=== PATIENT | female | born 1990 | race Caucasian/White ===

== ENCOUNTER 2019-03-02 17:02 | Inpatient (IN) | payer OTHER ==
[2019-03-02 17:46] LABS: #Eosinphils 0.1 thou/uL (0.0-0.7); #Lymphocytes 1.8 thou/uL (1.20-3.40); #Monocytes 0.8 thou/uL (0.11-0.59); #Neutrophils 6.1 thou/uL (1.40-6.50); %Basophils 0.3 % (0.0-1.0); %Eosinophils 0.7 % (0.0-10.0); %Lymphocytes 20.5 % (21.0-51.0); %Neutrophils 69.5 % (42.0-75.0); Hemoglobin 13.7 g/dL (12.0-16.0); Mean Corpuscular HGB CONC 33.7 g/dL (32.0-36.0); Mean Corpuscular Hemoglobin 30.7 pg (27.0-31.0); Mean Corpuscular Volume 91.1 fL (78.0-98.0); Mean Platelet Volume 8.2 fL (7.4-10.4); Platelet Count 213 thou/uL (130-400); RBC Distribution Width 11.1 % (11.5-14.5); Red Blood Cell (RBC) Count 4.48 mill/uL (4.20-5.40); White Blood Cell (WBC) Count 8.8 thou/uL (4.8-10.8)
[2019-03-02] MEDS ORDERED: cefTRIAXone\\ROCEPHIN 2 GM VIAL ONE (17:52)
[2019-03-02 18:04] LABS: ALT (SGPT) 10 U/L (8-55); AST (SGOT) 15 U/L (5-34); Albumin 4.3 g/dL (3.5-5.0); Alkaline Phosphatase 53 U/L (40-110); Anion Gap 13 mmol/L (10-20); BUN (Urea Nitrogen) 15 mg/dL (7.0-18.7); Bilirubin, Total 0.8 mg/dL (0.2-1.2); Calc. Creatinine Clearance 0 mL/min (70-130); Calcium 9.7 mg/dL (7.8-10.44); Carbon Dioxide 26 mmol/L (22-29); Chloride 102 mmol/L (98-107); Estimated GFR-MDRD 75; Globulin 3.6 g/dL (2.4-3.5); Glucose 80 mg/dL (70-105); Potassium 4.2 mmol/L (3.5-5.1); Protein, Total 7.9 g/dL (6.0-8.3); Sodium 137 mmol/L (136-145)
[2019-03-02] MEDS ORDERED: Ondansetron PF 4 MG/2 ML Vial ONE (18:33)
[2019-03-02] MEDS ORDERED: Ketorolac Tromethamine 30 MG/ML VIAL ONE (19:16)
[2019-03-02] MEDS ORDERED: Acetaminophen 325 MG TAB PO PRN (19:51)
[2019-03-02] MEDS ORDERED: Calcium Carbonate 500 MG ChewTAB PO PRN (19:51)
[2019-03-02] MEDS ORDERED: Ondansetron ODT 4 MG TAB PO PRN (19:51)
[2019-03-02] MEDS ORDERED: Ondansetron PF 4 MG/2 ML Vial IVP PRN (19:51)
[2019-03-02] MEDS ORDERED: HYDROcodone/Acetaminophen 5/325 mg Tablet PO PRN (19:53)
[2019-03-02] MEDS ORDERED: Doxepin HCl 10 MG CAP PO PRN (19:55)
[2019-03-02] MEDS ORDERED: Famotidine 20 MG TAB PO PRN (19:57)
[2019-03-02] MEDS ORDERED: Vancomycin HCl 1 GM in Premix Bag 1 BAG IVPB SCH (20:00)
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
[2019-03-02 20:32] VITALS: BMI 34.3
[2019-03-03] MEDS: Vancomycin 1.5 GRAM/300 ML BAG 1.5 GM in Premix Bag 1 BAG IVPB SCH ×2 (00:31→13:43)
[2019-03-03] MEDS: Ketorolac Tromethamine 30 MG/ML VIAL IVP PRN ×2 (01:44→08:57)
[2019-03-03] MEDS ORDERED: Saccharomyces boulardii 250 MG CAP PO SCH (09:00)
[2019-03-03] MEDS ORDERED: diphenhydrAMINE 25 MG CAP PO PRN (12:28)
[2019-03-03] MEDS ORDERED: Ibuprofen 200 MG TAB PO PRN (12:28)
[2019-03-03] MEDS ORDERED: ALPRAZolam 0.25 MG TAB PO PRN (12:28)
[2019-03-03] MEDS ORDERED: Melatonin 3 MG TAB PO PRN (12:28)
--- NOTE | 2019-03-03 14:50 | PDOC.HOSPP ---
- Subjective Encounter Date: 03/03/19 Encounter Time: 11:00 Subjective: Patient seen and examined for facial cellulitis. Swelling slowly improving. No fever/chills. No new complaints. No overnight events - Objective Vital Signs & Weight: Vital Signs (12 hours) Temp Pulse Resp BP Pulse Ox 03/03/19 11:38 97.9 F 66 20 103/67 97 03/03/19 08:52 99 03/03/19 07:49 97.7 F 60 20 99/60 99 03/03/19 04:43 98.1 F 63 15 102/67 99 Weight Admit Weight 212 lb 11.2 oz Weight 212 lb 11.2 oz Result Diagrams: 03/02/19 17:32 03/02/19 17:32 Hospitalist ROS - Review of Systems Respiratory: denies: cough, dry, shortness of breath, hemoptysis, SOB with excertion, pleuritic pain, sputum, wheezing, other Cardiovascular: denies: chest pain, palpitations, orthopnea, paroxysmal noc. dyspnea, edema, light headedness, other - Medication Medications: Active Medications Generic Name Dose Route Start Last Admin Trade Name Freq PRN Reason Stop Dose Admin Vancomycin HCl 1.5 gm/ Device 300 mls @ 200 mls/hr 03/03/19 01:00 03/03/19 13 :43 IVPB 300 mls 0100,1300 HAWK Administration Saccharomyces Boulardii 250 mg 03/03/19 09:00 03/03/19 08:54 Florastor PO 250 mg DAILY HAWK Administration - Exam General Appearance: NAD Skin - other findings: improving/erythema improving Psychiatric: normal affect, A&O x 3 Hosp A/P - Plan DVT proph w/SCDs 1. Facial cellulitis with abscess, status post I&D 2. Chronic kidney disease, stage 2. 3. Obesity BMI 34.3 PLAN: Cont Vancomycin/Ceftriaxone Monitor Vancomycin level Cont other meds as above.
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
[2019-03-03 18:30] VITALS: BP 123/76; TEMP 97.6
[2019-03-03] MEDS ORDERED: cefTRIAXone\\ROCEPHIN 2 GM in Sodium Chloride 0.9% 100 ML IVPB SCH (20:00)
--- NOTE | 2019-03-04 08:16 | DIS ---
DATE OF ADMISSION: 03/02/2019 DATE OF DISCHARGE: 03/03/2019 DISCHARGE DISPOSITION: Home. FOLLOWUP: 1. Follow up with Dr. Debbie Keane in 3 days. 2. Follow up with Infectious Disease, Dr. Real in 1 week. The patient was seen on the day of discharge. Denies any new complaints. Please refer to my progress note for details. BRIEF HOSPITAL COURSE: The patient is a 28-year-old female, who was admitted to the hospital with a facial swelling of 1 week duration. She had incision and drainage of the facial abscess the day before admission. She failed outpatient therapy. She was started on IV vancomycin and Zosyn. She was evaluated by Infectious Disease, Dr. Real, who recommended Zyvox 600 mg b.i.d. for 10 days. Cultures from the incision and drainage was positive for Staphylococcus. Sensitivities are pending at this time. The patient has been cleared by Infectious Disease for discharge. SIGNIFICANT LABORATORY DATA: WBC 8.8 and hemoglobin 13.7. Sodium 137, potassium 4.2, BUN 15, and creatinine 0.88. FINAL DIAGNOSES: 1. Facial cellulitis with abscess, status post incision and drainage prior to admission. Please note the patient failed outpatient antibiotic therapy. 2. Chronic kidney disease, stage 2. 3. Obesity with a BMI of 34.3. Job ID: [id number]
--- NOTE | 2019-03-04 20:02 | PQF ---
YOLA LUEVANO MALIK MD [id number] CLINICAL DOCUMENTATION CLARIFICATION FORM: POST DISCHARGE Addendum to original discharge summary date: ____ Late entry note date: __ DATE: 03/04/19 ATTN: Catrachito Ying Please exercise your independent, professional judgment in responding to the clarification form. Clinical indicators are provided on the bottom of this form for your review Can you please further clarify if facial cellulitis is a complication of Incision and drainage of not? Please check appropriate box(s): [ ] facial cellulitis is a complication of Incision and drainage [ x ] facial cellulitis is not a complication of Incision and drainage [ ] Other diagnosis [ ] Unable to determine In addition, please specify: Present on Admission (POA): [ ] Yes [ ] No [ ] Unable to determine CLINICAL INDICATORS - SIGNS / SYMPTOMS / LABS H and P pg.2- facial cellulitis with abscess, status post incision and drainage yesterday H and P pg.1- facial swelling of 1 week duration H and P pg.1- underwent incision and drainage, and bacterial culture was sent from the [facility]. The symptoms got worse today Consult pg.1- cutaneous abscess in the forehead, who has had limited debridement after having failed oral clindamycin DS pg.1- she had incision and drainage of the facial abscess the day before admission RISK FACTORS status post incision and drainage- H and P pg.2 facial swelling of 1 week duration- H and P pg.1 Obesity- Hospitalist PN 03/03 pg.2 CKD 2- H and P TREATMENT: Infectious consult Dr. Real 03/03 IV fluids- MAY 25 IV antibiotics- MAY 25 Microbiology- 03/02 (This form is maintained as a part of the permanent medical record) 2014 [employer]. All Rights Reserved [email or web address] [not provided] MTDD
== END 2019-03-03 18:26 | disposition home or self-care (01) | DRG 603 ==
LOC: ERS 17:02 → T4-B 17:52
PROVIDERS: ADMIT Internal Medicine; ATTEND Internal Medicine
DX: L02.01 Cutaneous abscess of face (principal); L03.211 Cellulitis of face; B95.8 Unspecified staphylococcus as the cause of diseases classified elsewhere; F41.9 Anxiety disorder, unspecified; J30.2 Other seasonal allergic rhinitis; N18.2 Chronic kidney disease, stage 2 (mild); E66.9 Obesity, unspecified; Z68.34 Body mass index [BMI] 34.0-34.9, adult; Z79.899 Other long term (current) drug therapy; F32.9 Major depressive disorder, single episode, unspecified
CPT/HCPCS: 36415; 80053; 85025; 87040; 87070; 87077; 87186; 87205; 96365; 96367; 96375; J0696; J1885; J2405; J3370